=== PATIENT | male | born 1965 | race Caucasian/White ===

== ENCOUNTER 2019-02-24 13:57 | Emergency (ER) | payer BC, MEDICAID ==
[~2019-02-24] VITALS: Ht 180.3 cm; Wt 95.3 kg
--- NOTE | 2019-02-24 14:21 | NUR ---
Dr. Ruiz at the bedside for MSE.
--- NOTE | 2019-02-24 14:28 | NUR ---
Patient discharged to home in stable conditon. Written and verbal after care instructions given. Patient verbalizes understanding of instructions.
== END 2019-02-24 14:28 | disposition home or self-care (01) ==
LOC: ER 13:57
DX: J06.9 Acute upper respiratory infection, unspecified (principal)
CPT/HCPCS: A4663

== ENCOUNTER 2020-12-27 19:23 | Emergency (ER) | payer MEDICAID ==
[~2020-12-27] VITALS: Ht 180.3 cm; Wt 89.8 kg
[2020-12-27] MEDS ORDERED: ACETAMINOPHEN ES 500 MG TABLET PO ONE (21:00)
[2020-12-27] MEDS ORDERED: IBUPROFEN 800 MG TABLET PO ONE (21:00)
[2020-12-27] MEDS ORDERED: NEOM10DR11 OT (21:45)
--- NOTE | 2020-12-27 21:50 | NUR ---
Patient discharged to home in stable condition. Written and verbal after care instructions given. Patient verbalizes understanding of instructions. Stressed follow up or return to ER for worsening s/s.
== END 2020-12-27 21:51 | disposition home or self-care (01) ==
LOC: ER 19:23
DX: R51.9 Headache, unspecified (principal); H92.03 Otalgia, bilateral
CPT/HCPCS: 70450; A4663

== ENCOUNTER 2022-02-22 11:16 | Emergency (ER) | payer MEDICAID ==
[~2022-02-22] VITALS: Ht 175.3 cm; Wt 81.6 kg
[~2022-02-22 11:16] MED LIST: NEOM10DR11 OT
[2022-02-22] MEDS ORDERED: TETRACAINE HCL 0.5% OPHT DROP 2 ML BOTTLE ONE (11:25)
[2022-02-22] MEDS ORDERED: FLUORESCEIN SODIUM 1 MG STRIP ONE (11:26)
[2022-02-22] MEDS ORDERED: FLUORESCEIN SODIUM 1 MG STRIP OP ONE (11:30)
[2022-02-22] MEDS ORDERED: TETRACAINE HCL 0.5% OPHT DROP 2 ML BOTTLE OP ONE (11:30)
[2022-02-22 12:26] VITALS: BP 98/72
== END 2022-02-22 12:26 | disposition home or self-care (01) ==
LOC: ER 11:16
DX: H54.61 Unqualified visual loss, right eye, normal vision left eye (principal); H57.13 Ocular pain, bilateral; Z77.098 Contact with and (suspected) exposure to other hazardous, chiefly nonmedicinal, chemicals
CPT/HCPCS: A4663